=== PATIENT | female | born 1980 | race Caucasian/White ===

== ENCOUNTER 2018-07-03 08:49 | Emergency (ER) | payer OTHER ==
[2018-07-03 09:22] LABS: Absolute Lymphocytes (CBC) 1.7 K/uL (0.7-4.9); Absolute Monocytes 0.5 K/uL (0.1-1.3); Absolute Neutrophil 4.8 K/uL (1.8-8.0); Basophils % 0.6 % (0-1.3); Eosinophils % 2.5 % (0-4.4); Hematocrit 42.6 % (36.0-45.0); Lymphocytes % 23.7 % (15.3-44.8); MCH 31.3 pg (27.0-35.0); MCV 91.8 fL (80-100); MPV 8.1 fL (7.6-11.3); Monocytes % 7.1 % (3.3-12.3); RBC Red Blood Cell Count 4.64 M/uL (3.86-4.86)
[2018-07-03] MEDS ORDERED: NA CHLORIDE 0.9% 1,000 ML ONE (09:33)
[2018-07-03 10:09] LABS: ALT/SGPT 40 U/L (12-78); AST/SGOT 24 U/L (15-37); Albumin 3.8 g/dL (3.4-5.0); Alkaline Phosphatase 85 U/L (45-117); BUN Blood Urea Nitrogen 9 mg/dL (7-18); Bicarbonate 26 mmol/L (21-32); Bilirubin Direct 0.1 mg/dL (0-0.2); Bilirubin Total 0.5 mg/dL (0.2-1.0); Glucose Level 110 mg/dL (74-106); Potassium 3.9 mmol/L (3.5-5.1); Protein, Total 6.8 g/dL (6.4-8.2); Sodium Level 138 mmol/L (136-145); Troponin (Emerg Dept Use Only) < 0.02 ng/mL (0.0-0.045)
--- NOTE | 2018-07-03 11:00 | RAD REPORT ---
EXAM DESCRIPTION: RAD - Chest Single View - 07/03/2018 10:53 am CLINICAL HISTORY: CHEST PAIN Chest pain. COMPARISON: No comparisons FINDINGS: Portable technique limits examination quality. The lungs are grossly clear. The heart is normal in size. No displaced fractures. IMPRESSION: No acute intrathoracic process suspected.
--- NOTE | 2018-07-03 11:35 | EKG ---
Test Date: 2018-07-03 Test Time: 09:03:14 Publisher Assistant: SYLVAIN MEASUREMENT RESULTS: Intervals: Rate: 84 MD: 168 QRSD: 78 QT: 354 QTc: 418 [place]: P: 35 MD: 168 QRS: 58 T: 44 INTERPRETIVE STATEMENTS: Normal sinus rhythm Normal ECG No previous ECG available for comparison Electronically Signed On 07-03-18 11:34:16 FLORAL DESIGNER SALESPERSON by Ed Nelson
--- NOTE | 2018-07-03 12:26 | ER ---
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 Transition of care: patient was not received from another setting of care. Onset of symptoms was July 03, 2018. Risk Assessment: Do you want to hurt yourself or someone else? Patient reports no desire to harm self or others. Initial Sepsis Screen: Does the patient meet any 2 criteria? No. Patient's initial sepsis screen is negative. Does the patient have a suspected source of infection? No. Patient's initial sepsis screen is negative. Care prior to arrival: None. 09:06 Method Of Arrival: Wheelchair iw 09:06 Acuity: AMRIT 3 iw INSPECTOR OF DREDGING: 09:12 LMP N/A - control method iw Historical: - Allergies: 09:12 NKA; iw - Home Meds: 09:12 None [Active]; iw - PMHx: 09:12 None; iw - PSHx: 09:12 Cholecystectomy; Tonsillectomy; Tubal ligation; iw - Immunization history:: Adult Immunizations not up to date. - Social history:: Smoking status: Patient uses tobacco products, smokes one pack cigarettes per day. - Ebola Screening: : Patient negative for fever greater than or equal to 101.5 degrees Fahrenheit, and additional compatible Ebola Virus Disease symptoms Patient denies exposure to infectious person Patient denies travel to an Ebola-affected area in the 21 days before illness onset No symptoms or risks identified at this time. - Family history:: not pertinent. - Hospitalizations: : No recent hospitalization is reported. Screenin:05 Abuse screen: Denies threats or abuse. Denies injuries from another. Nutritional sv screening: No deficits noted. Tuberculosis screening: No symptoms or risk factors identified. Fall Risk None identified. Assessment: 09:05 Also complains of shortness of breath. General: Appears in no apparent distress. sv uncomfortable, well developed, Behavior is calm, cooperative, appropriate for age. Pain: Complains of pain in chest Pain radiates to left jaw Pain currently is 5 out of 10 on a pain scale. Pain began this morning. Neuro: Level of Consciousness is awake, alert, obeys commands, Oriented to person, place, time, situation, Moves all extremities. Full function Gait is steady, Speech is normal. Cardiovascular: Patient's skin is warm and dry. Rhythm is sinus rhythm. Respiratory: Airway is patent Respiratory effort is even, unlabored, Respiratory pattern is regular, symmetrical. Derm: Skin is pink, warm \\T\\ dry. 10:15 Reassessment: Xray at bedside. sv 11:45 Reassessment: Patient appears in no apparent distress at this time. No changes from sv previously documented assessment. Patient and/or family updated on plan of care and expected duration. Pain level reassessed. Patient is alert, oriented x 3, equal unlabored respirations, skin warm/dry/pink. Repeat troponin sent to outside lab. Vital Signs: 09:12 BP 90 / 57; Pulse 88; Resp 16 S; Temp 98.2; Pulse Ox 97% on R/A; Weight 86.18 kg; iw Height 5 ft. 4 in. (162.56 cm); Pain 5/10; 09:35 BP 111 / 50; Pulse 82; Resp 16; Pulse Ox 97% on R/A; sv 10:20 BP 116 / 47; Pulse 79 MON; Resp 16; Pulse Ox 100% on R/A; sv 11:06 BP 103 / 63; Pulse 82; Resp 16; Pulse Ox 100% on R/A; sv 11:46 BP 119 / 62; Pulse 68; Resp 20; Pulse Ox 99% ; sv 12:22 BP 112 / 64; Pulse 72; Resp 19; Pulse Ox 99% ; sv 09:12 Body Mass Index 32.61 (86.18 kg, 162.56 cm) iw 10:20 Sinus Rhythm sv ED Course: 08:50 Patient arrived in ED. as 08:50 Jonah Betancourt DO is Private Physician. as 08:55 Angel Luna MD is Attending Physician. rn 08:59 Cierra Castillo RN is Primary Nurse. sv 09:05 Initial lab(s) drawn, by me, sent to lab. Inserted saline lock: 20 gauge in right sv antecubital area, using aseptic technique. Blood collected. Flushed right antecubital with 5 ml normal saline. 09:05 Patient maintains SpO2 saturation greater than 95% on room air. sv 09:05 Patient has correct armband on for positive identification. Placed in gown. Bed in low sv position. Call light in reach. Adult w/ patient. monitoring manager on. Pulse ox on. NIBP on. Door closed. Head of bed elevated. Pt declined a blanket at this time.. 09:10 EKG done, by nanoscience technician. reviewed by Angel Luna MD. at1 09:11 Triage completed. iw 09:12 Arm band placed on. iw 09:15 Awaiting lab results, Awaiting for x-ray. sv 10:20 Awaiting radiology results. sv 10:28 XRAY Chest (1 view) Sent. sv 10:52 X-ray completed. Portable x-ray completed in exam room. Patient tolerated procedure ls3 well. 10:54 XRAY Chest (1 view) In Process Unspecified. EDMS 12:58 No provider procedures requiring assistance completed. IV discontinued, intact, sv bleeding controlled, No redness/swelling at site. Pressure dressing applied. Administered Medications: 09:30 Drug: NS 0.9% 1000 ml Route: IV; Rate: 1000 ml; Site: right antecubital; sg 12:58 Follow up: Response: No adverse reaction; IV Status: Completed infusion; IV Intake: sv 500ml Intake: 12:58 IV: 500ml; Total: 500ml. sv Outcome: 12:26 Discharge ordered by MD. rn 12:58 Discharged to home ambulatory, with family. sv 12:58 Condition: stable 12:58 Discharge instructions given to patient, Instructed on discharge instructions, follow up and referral plans. Demonstrated understanding of instructions, follow-up care. 12:58 Patient left the ED. sv Signatures: Dispatcher [employer] EDMS Cierra Castillo RN RN sv Gay, Steven, RN RN sg Martinez, Amelia as Williams, Irene, RN RN iw Angel Luna MD MD rn Gonzales, Amanda, chief mechanical engineer EKG Tat1 Shari Perez ls3 Corrections: (The following items were deleted from the chart) 13:03 13:01 Patient left the ED. sv sv
--- NOTE | 2018-07-03 12:26 | EDPHYS ---
Physician Documentation [facility] Name: Teresa Freire Age: 38 yrs Sex: Female : 1980 Arrival Date: 07/03/2018 Time: 08:50 Bed 8 Private MD: Marilin Betancourth ED Physician Angel Luna HPI: 07/03 09:16 This 38 yrs old Female presents to ER via Wheelchair with complaints of Chest rn Pain, Jaw Pain, Nausea. 09:16 The patient or guardian reports chest pain that is located primarily in the substernal rn area. The pain does not radiate. Associated signs and symptoms: Pertinent positives: nausea, Pertinent negatives: abdominal pain, cough, diaphoresis, near syncope, palpitations, shortness of breath, syncope, vomiting. The chest pain is described as a heaviness. Duration: The patient or guardian reports a single episode, that is now resolved. Modifying factors: The symptoms are alleviated by nothing. the symptoms are aggravated by nothing. Severity of pain: At its worst the pain was moderate in the emergency department the pain has improved. The patient has not experienced similar symptoms in the past. The patient has not recently seen a physician. 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 . INGOT SUPERVISOR: 09:12 LMP N/A - control method iw Historical: - Allergies: 09:12 NKA; iw - Home Meds: 09:12 None [Active]; iw - PMHx: 09:12 None; iw - PSHx: 09:12 Cholecystectomy; Tonsillectomy; Tubal ligation; iw - Immunization history:: Adult Immunizations not up to date. - Social history:: Smoking status: Patient uses tobacco products, smokes one pack cigarettes per day. - Ebola Screening: : Patient negative for fever greater than or equal to 101.5 degrees Fahrenheit, and additional compatible Ebola Virus Disease symptoms Patient denies exposure to infectious person Patient denies travel to an Ebola-affected area in the 21 days before illness onset No symptoms or risks identified at this time. - Family history:: not pertinent. - Hospitalizations: : No recent hospitalization is reported. ROS: 09:17 Constitutional: Negative for fever, chills, and weight loss, Eyes: Negative for injury, rn pain, redness, and discharge, Neck: Negative for injury, pain, and swelling, Cardiovascular: Negative for palpitations, and edema, Respiratory: Negative for shortness of breath, cough, wheezing, and pleuritic chest pain, Abdomen/GI: Negative for abdominal pain, vomiting, diarrhea, and constipation, MS/Extremity: Negative for injury and deformity, Skin: Negative for injury, rash, and discoloration, Neuro: Negative for headache, weakness, numbness, tingling, and seizure. Exam: 09:17 Constitutional: This is a well developed, well nourished patient who is awake, alert, rn and in no acute distress. Head/Face: Normocephalic, atraumatic. ENT: MMM, no stridor Chest/axilla: Normal chest wall appearance and motion. Nontender with no deformity. Cardiovascular: Regular rate and rhythm with a normal S1 and S2. No gallops, murmurs, or rubs. No JVD. No pulse deficits. Respiratory: Lungs have equal breath sounds bilaterally, clear to auscultation. No increased work of breathing, no retractions or nasal flaring. Abdomen/GI: soft, non-tender MS/ Extremity: Pulses equal, no cyanosis. Neurovascular intact. Full, normal range of motion. Equal circumference. Neuro: Awake and alert, GCS 15, oriented to person, place, time, and situation. Cranial nerves II-XII grossly intact. Motor strength 5/5 in all extremities. Sensory grossly intact. Cerebellar exam normal. Vital Signs: 09:12 BP 90 / 57; Pulse 88; Resp 16 S; Temp 98.2; Pulse Ox 97% on R/A; Weight 86.18 kg; iw Height 5 ft. 4 in. (162.56 cm); Pain 5/10; 09:35 BP 111 / 50; Pulse 82; Resp 16; Pulse Ox 97% on R/A; sv 10:20 BP 116 / 47; Pulse 79 MON; Resp 16; Pulse Ox 100% on R/A; sv 11:06 BP 103 / 63; Pulse 82; Resp 16; Pulse Ox 100% on R/A; sv 11:46 BP 119 / 62; Pulse 68; Resp 20; Pulse Ox 99% ; sv 12:22 BP 112 / 64; Pulse 72; Resp 19; Pulse Ox 99% ; sv 09:12 Body Mass Index 32.61 (86.18 kg, 162.56 cm) iw 10:20 Sinus Rhythm sv MDM: 08:55 Patient medically screened. rn 12:23 Data reviewed: vital signs, nurses notes. rn 12:24 Differential diagnosis: acute myocardial infarction, acute pericarditis, anxiety, rn coronary artery disease chest wall pain, costochondritis, esophagitis, gastritis, gastroesophageal reflux disease (GERD), pericarditis, pleurisy, pneumothorax, pulmonary embolus. Counseling: I had a detailed discussion with the patient and/or guardian regarding: the historical points, exam findings, and any diagnostic results supporting the discharge/admit diagnosis, lab results, radiology results, the need for outpatient follow up, to return to the emergency department if symptoms worsen or persist or if there are any questions or concerns that arise at home. Special discussion: Based on the patient's history, exam, and Dx evaluation, there is no indication for emergent intervention or inpatient Tx. It is understood by the patient/guardian that if the Sx's persist or worsen they need to return immediately for re-evaluation. I discussed with the patient/guardian in detail that at this point there is no indication for admission to the hospital. It is understood, however, that if the symptoms persist or worsen the patient needs to return immediately for re-evaluation. 12:24 ED course: Repeat troponin negative, will dc home with reocmmendation for pcp and handle turner f/u for ECHO/holter and further w/u, possible stress test. . 07/03 09: Order name: Basic Metabolic Panel; Complete Time: 10: rn 07/03 09: Order name: CBC with Diff; Complete Time: : rn 07/03 09: Order name: LFT's; Complete Time: : rn 07/03 09:01 Order name: Troponin (emerg Dept Use Only); Complete Time: : rn 07/03 09: Order name: D-Dimer; Complete Time: : rn 07/03 11:34 Order name: Troponin (emerg Dept Use Only); Complete Time: 12:23 rn 07/03 09:01 Order name: XRAY Chest (1 view); Complete Time: 11: rn 07/03 09: Order name: EKG; Complete Time: 09: rn 07/03 09:01 Order name: Cardiac monitoring; Complete Time: : rn 07/03 09:01 Order name: EKG - Nurse/Tech; Complete Time: : rn 07/03 09:01 Order name: IV Saline Lock; Complete Time: : rn 07/03 09:01 Order name: Labs collected and sent; Complete Time: : rn 07/03 11:34 Order name: EKG; Complete Time: 11:35 rn 07/03 09:01 Order name: O2 Per Protocol; Complete Time: : rn 07/03 09:01 Order name: O2 Sat Monitoring; Complete Time: : rn 07/03 11:34 Order name: EKG - Nurse/Tech; Complete Time: 11:46 rn Administered Medications: 09:30 Drug: NS 0.9% 1000 ml Route: IV; Rate: 1000 ml; Site: right antecubital; 12:58 Follow up: Response: No adverse reaction; IV Status: Completed infusion; IV Intake: sv 500ml Disposition: 07/03/18 12:26 Discharged to Home. Impression: Chest pain, unspecified. - Condition is Stable. - Discharge Instructions: Nonspecific Chest Pain. - Work release form, Medication Reconciliation Form, Thank You Letter, Antibiotic Education, Prescription Opioid Use form. - Follow up: Private Physician; When: As needed; Reason: Recheck today's complaints, Re-evaluation by your physician. - Problem is new. - Symptoms have improved. Signatures: Dispatcher [employer] EDOR Cierra Castillo RN RN sv Gay, Steven, RN RN Padmaja Rushing RN RN Angel Luna MD MD rn burn: (The following items were deleted from the chart) 12:25 12:23 Differential diagnosis: anxiety, dehydration, hypoglycemia, Vasovagal reaction, rn reaction to phlebotomoy rn 13:01 12:26 07/03/2018 12:26 Discharged to Home. Impression: Chest pain, unspecified. sv Condition is Stable. Forms are Medication Reconciliation Form, Thank You Letter, Antibiotic Education, Prescription Opioid Use. Follow up: Private Physician; When: As needed; Reason: Recheck today's complaints, Re-evaluation by your physician. Problem is new. Symptoms have improved. rn
--- NOTE | 2018-07-03 15:25 | EKG ---
Test Date: 2018-07-03 Test Time: 11:44:58 Derrick Boat Captain: SYLVAIN MEASUREMENT RESULTS: Intervals: Rate: 66 WA: 178 QRSD: 76 QT: 394 QTc: 413 Albert Lea: P: 41 WA: 178 QRS: 67 T: 59 INTERPRETIVE STATEMENTS: Normal sinus rhythm Normal ECG Compared to ECG 07/03/2018 09:03:14 No significant changes Electronically Signed On 07-03-18 15:24:34 PATIENT ADMITTING CLERK by Ed Nelson
== END 2018-07-03 13:01 | disposition home or self-care (01) ==
LOC: ER 08:49
DX: R07.9 Chest pain, unspecified (principal); F17.210 Nicotine dependence, cigarettes, uncomplicated
CPT/HCPCS: 36415; 71045; 80048; 80076; 84484; 85025; 85379; 93005; 96360; 96361; 99285; J7030

== ENCOUNTER 2020-08-17 21:37 | Emergency (ER) | payer BC, OTHER ==
--- OUTSIDE RECORDS SUMMARY | 2020-08-17 21:39 | XMS REPORT | Continuity of Care Document ---
:1980 Author Organization [facility] t Address [address] [place] [address] Care Team Providers Name Role Phone Emmie RASCON Attending Clinician Problems This patient has no known problems. Allergies, Adverse Reactions, Alerts This patient has no known allergies or adverse reactions. Medications Ordered Filled Start Stop Current Ordering Indication Dosage Frequency Signature Comments Components Source Medication Medication Date Date Medication? Clinician (SIG) Name Name Amoxicillin Amoxicillin 2019-0 2020- No Jonah [address] [facility]10 [facility]ancourt [facility] Xanax Xanax 2020-0 Yes Jon[facility] 1 tablet [facility] Zoloft Zoloft Yes Jonah Take 1/2 [facility] tab once a [facility] day x 1 [facility] week then l 1 tab once Outpati daily ent Clinics Mirena (52 Mirena (52 Yes Jonah as C [facility] MG) MG) Betancourt directed [facility] Procedures This patient has no known procedures. Encounters Start End Encounter Admission Attending Care Care Encounter Source Date/Time Date/Time Type Type Clinicians Facility Department ID 2020-08-14 2020-08-14 Outpatient [facility] [id number] [facility] 2020-08-12 2020-08-12 Out[facility] [id number] [facility] 2020-08-12 2020-08-12 [facility] [id number] [facility] 2020-08-12 2020-08-12 [facility] [id number] [facility] 2020-05-26 2020-05-26 Out[facility] [id number] [facility] 2020-04-28 2020-04-28 Out[facility] [id number] [facility] 2020-04-10 2020-04-10 [facility] [id number] [facility] 15:50:00 15:50:00 [facility] [place] [facility] 2020-04-10 2020-04-10 [facility] [id number] [facility] 08:25:00 08:25:00 [facility] 2019-10-10 2019-10-10 Office [facility] [id number] 09:49:48 10:25:53 Visit Shanel Solares [id number] Lidia [id number] Charmaine [id number] [address] 2019-09-25 2019-09-25 [facility] [id number] [facility] 16:00:00 16:00:00 [place] [facility] 2019-08-27 2019-08-27 [facility] [id number] [facility] [address] 16:00:00 16:00:00 [place] [employer] [facility] 2019-07-16 2019-07-16 [facility] [id number] 15:00:00 15:00:00 [place] [employer] [facility] 2019-04-04 2019-04-04 [facility] [id number] [facility] 15:46[facility]00 15:46:00 [facility] 2019-03-23 2019-03-23 [facility] [id number] 09:01:00 09:01:00 [facility] 2018-11-27 2018-11-27 [facility] [id number] 16:30:00 16:30:00 [place] [employer] [facility] 2018-11-15 2018-11-15 [facility] [id number] [facility] 14:30:00 14:30:00 [facility] 2018-10-30 2018-10-30 [facility] [id number] 10:58:00 10:58:00 [facility] 2018-10-26 2018-10-26 [facility] [id number] 13:30:00 13:30:00 [facility] 2018-10-24 2018-10-24 [facility] [id number] 10:55:00 10:55:00 [facility] 2018-10-10 2018-10-10 [facility] [id number] [facility] 09:24:00 09:24:00 [facility] 2018-10-02 2018-10-02 Outpatient Bruno Gaspar [id number] 15:45:00 15:45:00 [facility] 2018-08-10 2018-08-10 Outpatient Burno Gaspar [id number] [facility] 15:02:00 15:02:00 t [place] [facility] ent Clinics Results This patient has no known results.
--- OUTSIDE RECORDS SUMMARY | 2020-08-17 21:39 | XMS REPORT ---
:[address] [facility] Address [address], [address] [place] [address] Care Team Providers Name Role Phone Betancourt Unavailable [phone] PROBLEMS Type Condition ICD9-CM [id number] Onset Condition SNOMED Code Notes Code Code Dates Status Problem BMI Z68.33 Active 893369435626793 33.0-33.9,adult Problem Depression with F41.8 Active 344375274 anxiety Problem Tobacco F17.200 Active 72986651 dependence Problem Acute F43.11 Active 847284663 posttraumatic stress disorder Problem Encounter for Z01.419 Active 169584228 gynecological examination without abnormal finding Problem IUD (intrauterine Z97.5 Active 346420555 device) in place Problem Panic disorder F41.0 Active 821373402 [episodic paroxysmal anxiety] Problem Adjustment F43.20 Active 16322843 disorder, unspecified Problem Generalized F41.1 Active 51863439 anxiety disorder Problem Hyperlipemia, E78.2 Active 829181440 mixed Problem Surveillance for Z30.431 Active 194034815 control, intrauterine device Problem Remove/insert IUD Z30.433 Active 718481412 Problem Herpes simplex A60.04 Active 72612393 vulvovaginitis Problem Herpes simplex B00.9 Active 48704907 ALLERGIES No Known Allergies ENCOUNTERS from 1980 to 2020-08-12 Encounter Location Date Provider Diagnosis [facility] [address], [place] [address] IMMUNIZATIONS Vaccine Route Administration Date Status Kenalog (Triamcinolone) IM Intramuscular Jul 16, 2019 Adminis tered Kenalog (Triamcinolone) IM Intramuscular November 27, 2018 Adminis tered SOCIAL HISTORY Tobacco Use: Social History Observation Description Date Details (start date - stop date) Current Smoker Sex Assigned At : Social History Observation Description Sex Assigned At Unknown Alcohol Screen Question Answer Notes Did you have a drink containing alcohol in the past year? No Points 0 Interpretation Negative Tobacco Use/Smoking Question Answer Notes Are you a current smoker How many cigarettes a day do you smoke? 6-10 How soon after you wake up do you smoke your first cigarette ? 6-30 minutes How often do you smoke cigarettes? every day REASON FOR REFERRAL No Information VITAL SIGNS No information MEDICATIONS Medication SIG (Take, Route, Notes Start Date End Date Status Frequency, Duration) Zoloft 50 MG Take 1/2 tab once a Not -Taking day x 1 week then 1 tab once daily Orally Once a day for 30 day(s) Medrol 4 MG as directed Orally Jul, Jul, A ctive use as directed for 6 days Mirena (52 MG) 20 as directed Active MCG/24HR Intrauterine Azithromycin 250 MG 2 tablets on the Jul, Jul, Active first day, then 1 tablet daily for 4 days Orally Once a day for 5 day(s) Xanax 0.25 MG 1 tablet Orally Twice Active a day PRN SEVERE ANXIETY PROCEDURES No Information RESULTS No Results REASON FOR VISIT LYNN, ear/jaw pressure MEDICAL (GENERAL) HISTORY Type Description Date Medical History Hyperlipemia, mixed Medical History BMI 33.0-33.9,adult Medical History Depression with anxiety Medical History Tobacco dependence Surgical History Gallbladder 2000 Surgical History Tonsillectomy 2011 Surgical History BTL 2000 Hospitalization History Childbirth Goals Section No Information Health Concerns No Information MEDICAL EQUIPMENT No Information MENTAL STATUS No Information FUNCTIONAL STATUS No Information ASSESSMENTS No Information PLAN OF TREATMENT Medication Medication Name Sig Start Date Stop Date Medrol 4 MG as directed Orally use as directed for Jul, 021 Jul, 6 days Azithromycin 250 MG 2 tablets on the first day, then 1 Jul, Jul, tablet daily for 4 days Orally Once a day for 5 day(s) Insurance Providers Payer Name Payer Payer Insured Name Patient Coverage Covera ge End Address Phone Relationship to Start Date Micheal e Insured [employer] [phone] Teresa Freire and Sheng [id number] [place] [phone]
--- OUTSIDE RECORDS SUMMARY | 2020-08-17 21:39 | XMS REPORT ---
:1980 Author Organization [facility] Address [address] Aguilar, [address]run[address]. [address] [place] [address] Care Team Providers Name Role Phone Betancourt Unavailable [phone] PROBLEMS Type Condition ICD9-CM [id number] Onset Condition SNOMED Code Notes Code Code Dates Status Problem BMI Z68.33 Active 516286611425378 33.0-33.9,adult Problem Depression with F41.8 Active 488584836 anxiety Problem Tobacco F17.200 Active 35288252 dependence Problem Acute F43.11 Active 735919300 posttraumatic stress disorder Problem Encounter for Z01.419 Active 204545778 gynecological examination without abnormal finding Problem IUD (intrauterine Z97.5 Active 736107794 device) in place Problem Panic disorder F41.0 Active 745134328 [episodic paroxysmal anxiety] Problem Adjustment F43.20 Active 91602499 disorder, unspecified Problem Generalized F41.1 Active 52617388 anxiety disorder Problem Hyperlipemia, E78.2 Active 876360488 mixed Problem Surveillance for Z30.431 Active 116734479 control, intrauterine device Problem Remove/insert IUD Z30.433 Active 189663902 Problem Herpes simplex A60.04 Active 79710061 vulvovaginitis Problem Herpes simplex B00.9 Active 37997899 ALLERGIES No Known Allergies ENCOUNTERS from 1980 to 2020-05-27 Encounter Location Date Provider Diagnosis [facility] [address] Jacques K[address], [place] [address] IMMUNIZATIONS Vaccine Route Administration Date Status Kenalog [...] No information MEDICATIONS Medication SIG (Take, Route, Start Date End Date Status Frequency, Duration) Xanax 0.25 MG 1 tablet Orally Twice a Act leonie day PRN SEVERE ANXIETY Valtrex 1 GM 2 tablets Orally twice a May, May, Act leonie day for 1 day Mirena (52 MG) 20 as directed Intrauterine Active MCG/24HR Zoloft 50 MG Take 1/2 tab once a day x No t-Taking 1 week then 1 tab once daily Orally Once a day for 30 day(s) PROCEDURES No Information RESULTS No Results REASON FOR VISIT fever blister tx MEDICAL (GENERAL) HISTORY Type Description Date Medical [...] Medication Name Sig Start Date Stop Date Valtrex 1 GM 2 tablets Orally twice a day for 1 day May, 2 020 May, Insurance Providers Payer Name Payer Payer Insured Name Patient Coverage Covera ge End Address Phone Relationship to Start Date Micheal e Insured [employer] [phone] Teresa Freire self and Blue [id number] [address] [place] [phone]
--- OUTSIDE RECORDS SUMMARY | 2020-08-17 21:40 | XMS REPORT ---
:1980 Author Organization [facility] Address [address] Aguilar, [address]. [address] [place] [address] Care Team Providers Name Role Phone Betancourt Unavailable [phone] PROBLEMS Type Condition ICD9-CM [id number] Onset Condition SNOMED Code Notes Code Code Dates Status Problem BMI Z68.33 Active 404590322394299 33.0-33.9,adult Problem Depression with F41.8 Active 066778773 anxiety Problem Tobacco F17.200 Active 90556260 dependence Problem Acute F43.11 Active 994925283 posttraumatic stress disorder Problem Encounter for Z01.419 Active 005908601 gynecological examination without abnormal finding Problem IUD (intrauterine Z97.5 Active 180257621 device) in place Problem Panic disorder F41.0 Active 573813010 [episodic paroxysmal anxiety] Problem Adjustment F43.20 Active 29216592 disorder, unspecified Problem Generalized F41.1 Active 56812712 anxiety disorder Problem Hyperlipemia, E78.2 Active 933774401 mixed Problem Surveillance for Z30.431 Active 450307346 control, intrauterine device Problem Remove/insert IUD Z30.433 Active 754379150 Problem Herpes simplex A60.04 Active 56439555 vulvovaginitis Problem Herpes simplex B00.9 Active 44074476 ALLERGIES No Known Allergies ENCOUNTERS from 1980 to 2020-08-12 Encounter Location Date Provider Diagnosis [facility] [address], [place] [address] IMMUNIZATIONS Vaccine Route Administration Date Status Kenalog [...] Information RESULTS No Results REASON FOR VISIT COVID Testing---> PENDING MEDICAL (GENERAL) HISTORY Type Description Date Medical History Hyperlipemia, mixed Medical History BMI 33.0-33.9,adult Medical History Depression with anxiety Medical History Tobacco dependence Surgical History Gallbladder 2000 Surgical History Tonsillectomy 2012 Surgical History BTL 2000 Hospitalization History Childbirth [...] ge End Address Phone Relationship to Start Micheal e Insured [employer] [phone] Teresa Freire and Blue [id number] [address] [facility] [address]
--- OUTSIDE RECORDS SUMMARY | 2020-08-17 21:40 | XMS REPORT ---
:1980 Author Organization [facility] Address [address] Aguilar, [address]. [address] [place] [address] Care Team Providers Name Role Phone Betancourt Unavailable [phone] PROBLEMS Type Condition ICD9-CM SLQ48-[id number] Onset Condition SNOMED Code Notes Code Code Dates Status Problem BMI Z68.33 Active 921066466725615 33.0-33.9,adult Problem Depression with F41.8 Active 624567027 anxiety Problem Tobacco F17.200 Active 06289837 dependence Problem Acute F43.11 Active 475945107 posttraumatic stress disorder Problem Encounter for Z01.419 Active 637253904 gynecological examination without abnormal finding Problem IUD (intrauterine Z97.5 Active 583684128 device) in place Problem Panic disorder F41.0 Active 633470402 [episodic paroxysmal anxiety] Problem Adjustment F43.20 Active 54478730 disorder, unspecified Problem Generalized F41.1 Active 40334886 anxiety disorder Problem Hyperlipemia, E78.2 Active 237112740 mixed Problem Surveillance for Z30.431 Active 798507375 control, intrauterine device Problem Remove/insert IUD Z30.433 Active 579511539 Problem Herpes simplex A60.04 Active 87700468 vulvovaginitis Problem Herpes simplex B00.9 Active 14209566 ALLERGIES No Known Allergies ENCOUNTERS from 1980 to 2020-08-14 Encounter Location Date Provider Diagnosis [facility] [address] Jacques [address], [place] [address] IMMUNIZATIONS Vaccine Route Administration Date Status Kenalog [...] Information RESULTS No Results REASON FOR VISIT RTW note MEDICAL (GENERAL) HISTORY Type Description Date Medical [...] Micheal e Insured [employer] [phone] Teresa Freire and Sheng [id number] [address] [place] [address]
--- OUTSIDE RECORDS SUMMARY | 2020-08-17 21:40 | XMS REPORT ---
:1980 Author Organization [facility] Address [address] Aguilar, [place] [place] [address] Care Team Providers Name Role Phone Betancourt Unavailable [phone] PROBLEMS Type Condition ICD9-CM CET26-[id number] Onset Condition SNOMED Code Notes Code Code Dates Status Problem BMI Z68.33 Active 112283474281628 33.0-33.9,adult Problem Depression with F41.8 Active 702504527 anxiety Problem Tobacco F17.200 Active 11365031 dependence Problem Acute F43.11 Active 186829721 posttraumatic stress disorder Problem Encounter for Z01.419 Active 759387923 gynecological examination without abnormal finding Problem IUD (intrauterine Z97.5 Active 685764224 device) in place Problem Panic disorder F41.0 Active 181767337 [episodic paroxysmal anxiety] Problem Adjustment F43.20 Active 66434453 disorder, unspecified Problem Generalized F41.1 Active 29242108 anxiety disorder Problem Hyperlipemia, E78.2 Active 922969249 mixed Problem Surveillance for Z30.431 Active 126622586 control, intrauterine device Problem Remove/insert IUD Z30.433 Active 083983493 Problem Herpes simplex A60.04 Active 72935161 vulvovaginitis Problem Herpes simplex B00.9 Active 29546580 ALLERGIES No Known Allergies ENCOUNTERS from 1980 to 2020-08-12 Encounter Location Date Provider Diagnosis [facility] [place] [address], [place]ah Betancourt Suspected COVID-[address] [place], virus infe [place]tion Z20.8[address] [place] [address] ; Nonintractab le headache, unspe cified chronicity ruchi brielle, unspecified hea dache type R51.9 ; Le ft ear pain H92.02 ; S ore throat J02.9 an d Acute non-recurrent m axillary sinusitis J01.0 0 IMMUNIZATIONS Vaccine Route Administration Date Status Kenalog [...] REASON FOR REFERRAL No Information VITAL SIGNS Height 64 in Jul, Weight 187 lbs Jul, Temperature 98.5 degrees Fahrenheit Jul, BMI 32.09 kg/m2 Jul, Blood pressure systolic 130 mm Hg Jul, Blood pressure diastolic 70 mm Hg Jul, MEDICATIONS Medication SIG (Take, Route, Notes Start [...] PRN SEVERE ANXIETY PROCEDURES No Information RESULTS Component Value Reference Range STREP A RAPID Reviewed date:08/12/2020 18:07:52 Interpretation:Positive Performing Lab: Result POSITIVE SARS-COV 2 Antigen Reviewed date:08/12/2020 18:07:52 Interpretation:Negative Performing Lab: REASON FOR VISIT COVID-HEADACHE, SORE THROAT MEDICAL (GENERAL) HISTORY Type Description Date Medical History Hyperlipemia, mixed Medical History BMI 33.0-33.9,adult Medical History Depression with anxiety Medical History Tobacco dependence Surgical History Gallbladder 2000 Surgical History Tonsillectomy 2012 Surgical History BTL 2000 Hospitalization History Childbirth Goals Section No Information Health Concerns No Information MEDICAL EQUIPMENT No Information MENTAL STATUS No Information FUNCTIONAL STATUS No Information ASSESSMENTS Encounter Date Diagnosis Assessment Notes Treatment Notes Treatm ent Clinical Notes Jul, Suspected COVID-19 Questionable/possib virus infection le exposure to (ICD-10 - Z20.822) COVID. With patient's history and duration/severity of symptoms, it was determined to proceed with testing of this patient for suspected case of COVID-19. CDC/IDER protocols were followed. While maintaining minimal exposure specimen was collected while patient remained in their car. Clinical staff went to the car dressed in appropriate PPE to collect the specimen while maintaining protocol. ==== During testing/collection of nasopharyngeal/nasa l cavity specimen, staff/provider wore proper PPE, bagged specimen and properly disposed of PPE accordingly. - Specimen was verified with patient name/, properly handed to appropriate lab personnel. Patient was counseled based on clinical assessment, disease severity, and input from infectious disease and local health department. if local health department deemed that patient can be sent home, patient was provided with a surgical mask and advised to wear while commuting home. Patient was advised to self-quarantine for 14 days, or until negative results are received. Patient was instructed to refer to CDC guidelines and provided additional information on self-quarantine. Local health department contact information was given to patient: ==[facility], [address] [place] [address]. [phone] or [phone] Jul, Nonintractable headache, unspecified chronicity pattern, unspecified headache type (ICD-10 - R51.9) Jul, Left ear pain (ICD-10 - H92.02) Jul, Sore throat (ICD-10 - J02.9) Jul, Acute non-recurrent With the duration maxillary sinusitis and severity of (ICD-10 - J01.00) symptoms/PE, will treat with Zpak + medrol Dosepak. Side effect discussed with patient. In addition, discussed supportive measures and home remedies for symptomatic relief. Increase hydration. Advised on signs/symptoms to monitor. If able to take, OK to use OTC Tylenol and/or NSAIDs for pain and fever, temporarily. It is important to rest and take your medication as recommended by the doctor. You should clean your hands frequently. You should remain indoors and cover your mouth when coughing. If necessary you may have to wear a mask to keep from infecting others. You should also change your toothbrush within 24-48 hours of starting any antibiotics. Salt water gargles three times a day is recommended for pharyngeal irritation and congestion. Nasal saline sprays three times a day to the nostrils may help with the nasal congestion. You may also take Mucinex OTC for chest congestion. If the symptoms persists or worsen after 24-48 hours especially if taking medication, then you are to call back for reevaluation or go to the ER. Jul, Other -- Medication reviewed and updated. -- Dietary and Lifestyle modifications addressed regarding diet, exercise and weight management. -- Treatment options, risks and benefits, alternate treatment options, side effects reviewed in detail with patient. -- Shared decision making was utilized with patient and verbal informed consent was obtained in the end. -- Advised on signs/symptoms to monitor and when to call clinic and/or visit the nearest ER. Patient verbalized understanding and agreeable with plan. PLAN OF TREATMENT Medication Medication Name Sig Start Date Stop Date Medrol 4 MG as directed Orally use as directed for Jul, 021 Jul, 6 days Azithromycin 250 MG 2 tablets on the first day, then 1 Jul, Jul, tablet daily for 4 days Orally Once a day for 5 day(s) Treatment Notes Assessment Notes Clinical Notes Suspected COVID-19 virus infection Questionable/possible exp osure to COVID. With patient's history and duration/severity of symptoms, it was determined to proceed with testing of this patient for suspected case of COVID-19. CDC/IDER protocols were followed. While maintaining minimal exposure specimen was collected while patient remained in their car. Clinical staff went to the car dressed in appropriate PPE to collect the specimen while maintaining protocol. During testing/collection of nasopharyngeal/nasal cavity specimen, staff/provider wore proper PPE, bagged specimen and properly disposed of PPE accordingly. - Specimen was verified with patient name/, properly handed to appropriate lab personnel. Patient was counseled based on clinical assessment, disease severity, and input from infectious disease and [facility] health department. if local health department deemed that patient can be sent home, patient was provided with a surgical mask and advised to wear while commuting home. Patient was advised to self-quarantine for 14 days, or until negative results are received. Patient was instructed to refer to CDC guidelines and provided additional information on self-quarantine. Local [facility] department contact information was given to patient: ==[facility], [address] [place] [address]. [phone] or [phone] Acute non-recurrent maxillary With the duration and severity of sinusitis symptoms/PE, will treat with Zpak + medrol Dosepak. Side effect discussed with patient. In addition, discussed supportive measures and home remedies for symptomatic relief. Increase hydration. Advised on signs/symptoms to monitor. If able to take, OK to use OTC Tylenol and/or NSAIDs for pain and fever, temporarily. It is important to rest and take your medication as recommended by the doctor. You should clean your hands frequently. You should remain indoors and cover your mouth when coughing. If necessary you may have to wear a mask to keep from infecting others. You should also change your toothbrush within 24-48 hours of starting any antibiotics. Salt water gargles three times a day is recommended for pharyngeal irritation and congestion. Nasal saline sprays three times a day to the nostrils may help with the nasal congestion. You may also take Mucinex OTC for chest congestion. If the symptoms persists or worsen after 24-48 hours especially if taking medication, then you are to call back for reevaluation or go to the ER. Next Appt Details prn Reason: Insurance Providers Payer Name Payer Payer Insured Name Patient Coverage Covera End Address Phone Relationship to Start Date Micheal e Insured [employer] [phone] Teresa Freire chen and Blue [id number] [address] [place] [phone]
--- NOTE | 2020-08-18 01:07 | EDPHYS ---
Physician Documentation [facility] Name: Teresa Freire Age: 40 yrs Sex: Female : 1980 Arrival Date: 08/17/2020 Time: 21:40 Bed 4 Private MD: ED Physician Hever Levy HPI: 08/18 00:58 This 40 yrs old Female presents to ER via Ambulatory with complaints of Neck mh7 Problem, + Jaw. 00:59 The patient or guardian complains of pressure sensation. The symptoms are located left mh7 anterior lateral side of neck. Onset: The symptoms/episode began/occurred 1 week(s) ago. Context: The problem was sustained at home, The neck injury/problem resulted from from unknown cause. Associated signs and symptoms: Pertinent negatives: chills, constipation, fever, headache, bladder incontinence, bowel incontinence, nausea, numbness, tingling, vomiting, weakness. The pain does not radiate. Modifying factors: The symptoms are alleviated by nothing. the symptoms are aggravated by nothing. Severity of symptoms: At their worst the symptoms were mild, 7 day(s) ago, in the emergency department the symptoms have improved, moderately. States that she tested positive for strep 5 days ago and just finished antibiotics. 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 - Social history:: Smoking status: Patient reports the use of cigarette tobacco products, smokes one pack cigarettes per day. ROS: 08/18 00:59 Constitutional: Negative for fever, chills, and weight loss, Eyes: Negative for injury, mh7 pain, redness, and discharge, ENT: Negative for injury, pain, and discharge, Cardiovascular: Negative for chest pain, palpitations, and edema, Respiratory: Negative for shortness of breath, cough, wheezing, and pleuritic chest pain, Abdomen/GI: Negative for abdominal pain, nausea, vomiting, diarrhea, and constipation, Back: Negative for injury and pain, : Negative for injury, bleeding, discharge, and swelling, MS/Extremity: Negative for injury and deformity, Skin: Negative for injury, rash, and discoloration, Neuro: Negative for headache, weakness, numbness, tingling, and seizure, Psych: Negative for depression, anxiety, suicide ideation, homicidal ideation, and hallucinations, Allergy/Immunology: Negative for hives, rash, and allergies, Endocrine: Negative for neck swelling, polydipsia, polyuria, polyphagia, and marked weight changes, Hematologic/Lymphatic: Negative for swollen nodes, abnormal bleeding, and unusual bruising. Exam: 00:59 Constitutional: This is a well developed, well nourished patient who is awake, alert, mh7 and in no acute distress. Head/Face: Normocephalic, atraumatic. Eyes: Pupils equal round and reactive to light, extra-ocular motions intact. Lids and lashes normal. Conjunctiva and sclera are non-icteric and not injected. Cornea within normal limits. Periorbital areas with no swelling, redness, or edema. ENT: Nares patent. No nasal discharge, no septal abnormalities noted. Tympanic membranes are normal and external auditory canals are clear. Oropharynx with no redness, swelling, or masses, exudates, or evidence of obstruction, uvula midline. Mucous membranes moist. Neck: Trachea midline, no thyromegaly or masses palpated, and no cervical lymphadenopathy. Supple, full range of motion without nuchal rigidity, or vertebral point tenderness. No Meningismus. Chest/axilla: Normal chest wall appearance and motion. Nontender with no deformity. No lesions are appreciated. Cardiovascular: Regular rate and rhythm with a normal S1 and S2. No gallops, murmurs, or rubs. Normal PMI, no JVD. No pulse deficits. Respiratory: Lungs have equal breath sounds bilaterally, clear to auscultation and percussion. No rales, rhonchi or wheezes noted. No increased work of breathing, no retractions or nasal flaring. Abdomen/GI: Soft, non-tender, with normal bowel sounds. No distension or tympany. No guarding or rebound. No evidence of tenderness throughout. Back: No spinal tenderness. No costovertebral tenderness. Full range of motion. Skin: Warm, dry with normal turgor. Normal color with no rashes, no lesions, and no evidence of cellulitis. MS/ Extremity: Pulses equal, no cyanosis. Neurovascular intact. Full, normal range of motion. Neuro: Awake and alert, GCS 15, oriented to person, place, time, and situation. Cranial nerves II-XII grossly intact. Motor strength 5/5 in all extremities. Sensory grossly intact. Cerebellar exam normal. Normal gait. Psych: Awake, alert, with orientation to person, place and time. Behavior, mood, and affect are within normal limits. Vital Signs: 08/17 22:12 BP 149 / 78; Pulse 92; Resp 16 S; Temp 97.7(TE); Pulse Ox 100% on R/A; Weight 83.91 kg ca1 (R); Height 5 ft. 4 in. (162.56 cm) (R); Pain 0/10; 08/18 00:42 BP 122 / 66; Pulse 85; Resp 17; Pulse Ox 98% ; rr5 01:10 BP 119 / 65; Pulse 80; Resp 17; Pulse Ox 98% ; rr5 08/17 22:12 Body Mass Index 31.75 (83.91 kg, 162.56 cm) ca1 MDM: 00:59 Differential diagnosis: cervical strain, torticollis, Musculoskeletal pain, infectious mh7 process. Data reviewed: vital signs, nurses notes, EKG. Data interpreted: Pulse oximetry: on room air is 98 %. Interpretation: normal. Counseling: I had a detailed discussion with the patient and/or guardian regarding: the historical points, exam findings, and any diagnostic results supporting the discharge/admit diagnosis, the need for outpatient follow up, to return to the emergency department if symptoms worsen or persist or if there are any questions or concerns that arise at home. Response to treatment: the patient's symptoms have markedly improved after treatment. Refusal of service: The patient/guardian displays adequate decision making capability and despite a detailed discussion of alternatives, benefits, risks, and consequences refuses: CT Scan, all lab tests. 01:06 Patient medically screened. 7 08/18 00:42 Order name: EKG - Nurse/Tech; Complete Time: 00:42 rr5 Administered Medications: No medications were administered Disposition: 08/18/20 01:06 Discharged to Home. Impression: Neck Pain. - Condition is Stable. - Discharge Instructions: Musculoskeletal Pain. - Medication Reconciliation Form, Thank You Letter, Antibiotic Education, Prescription Opioid Use form. - Follow up: Private Physician; When: 1 - 2 days; Reason: Worsening of condition, Recheck today's complaints, Continuance of care, Re-evaluation by your physician. - Problem is an ongoing problem. - Symptoms have improved. Signatures: Wilber Centeno RN RN rr5 Chayo, PERNELL Lovell RN ca1 Hever Levy MD MD 7 Corrections: (The following items were deleted from the chart) 01:25 01:06 08/18/2020 01:06 Discharged to Home. Impression: Neck Pain. Condition is Stable. rr5 Forms are Medication Reconciliation Form, Thank You Letter, Antibiotic Education, Prescription Opioid Use. Follow up: Private Physician; When: 1 - 2 days; Reason: Worsening of condition, Recheck today's complaints, Continuance of care, Re-evaluation by your physician. Problem is an ongoing problem. Symptoms have improved. 7
--- NOTE | 2020-08-18 01:07 | ER ---
Nurse's Notes [facility] Name: Teresa Freire Age: 40 yrs Sex: Female : 1980 Arrival Date: 08/17/2020 Time: 21:40 Bed 4 Private MD: Diagnosis: Neck Pain Presentation: 08/17 22:12 Chief complaint: Patient states: have this weird feeling on my L jaw and L front neck x ca1 1 week, getting worse. Feels like pressure, feels it in my tongue. And I feel lightheaded when I get up and move too much. And I feel real funny, I can't explain it. Coronavirus screen: Client denies travel out of the [place] in the last 14 days. At this time, the client does not indicate any symptoms associated with coronavirus-19. Ebola Screen: Patient negative for fever greater than or equal to 101.5 degrees Fahrenheit, and additional compatible Ebola Virus Disease symptoms Patient denies exposure to infectious person. Patient denies travel to an Ebola-affected area in the 21 days before illness onset. No symptoms or risks identified at this time. Initial Sepsis Screen: Does the patient meet any 2 criteria? No. Patient's initial sepsis screen is negative. Does the patient have a suspected source of infection? No. Patient's initial sepsis screen is negative. Risk Assessment: Do you want to hurt yourself or someone else? Patient reports no desire to harm self or others. Onset of symptoms was August 17, 2020. 22:12 Method Of Arrival: Ambulatory ca1 22:12 Acuity: AMRIT 3 ca1 SEWER HAND: 22:15 LMP N/A - control method ca1 Historical: - Allergies: 22:15 NKA; ca1 - Home Meds: 22:15 None [Active]; ca1 - PMHx: 22:15 None; ca1 - PSHx: 22:15 Cholecystectomy; Tonsillectomy; Tubal ligation; ca1 - Immunization history:: Flu vaccine is not up to date. - Social history:: Smoking status: Patient reports the use of cigarette tobacco products, smokes one pack cigarettes per day. Screenin/25 00:08 Abuse screen: Denies threats or abuse. Denies injuries from another. Nutritional rr5 screening: No deficits noted. Tuberculosis screening: No symptoms or risk factors identified. Fall Risk None identified. Total Heller Fall Scale indicates No Risk (0-24 pts). Assessment: 00:15 General: Appears in no apparent distress. comfortable, Behavior is calm, cooperative, rr5 appropriate for age. Pain: Denies pain. Neuro: Level of Consciousness is awake, alert, obeys commands, Oriented to person, place, time, situation. Cardiovascular: Capillary refill < 3 seconds Patient's skin is warm and dry. Respiratory: Airway is patent Respiratory effort is even, unlabored, Respiratory pattern is regular, symmetrical. GI: No signs and/or symptoms were reported involving the gastrointestinal system. : No signs and/or symptoms were reported regarding the genitourinary system. EENT: Reports pressure on left jaw. Derm: Skin is intact, is healthy with good turgor, Skin temperature is warm. Musculoskeletal: Capillary refill < 3 seconds. 01:15 Reassessment: Patient appears in no apparent distress at this time. Patient is alert, rr5 oriented x 3, equal unlabored respirations, skin warm/dry/pink. discharge instruction given and explained without complaints made. Vital Signs: 08/17 22:12 BP 149 / 78; Pulse 92; Resp 16 S; Temp 97.7(TE); Pulse Ox 100% on R/A; Weight 83.91 kg ca1 (R); Height 5 ft. 4 in. (162.56 cm) (R); Pain 0/10; 08/18 00:42 BP 122 / 66; Pulse 85; Resp 17; Pulse Ox 98% ; rr5 01:10 BP 119 / 65; Pulse 80; Resp 17; Pulse Ox 98% ; rr5 08/17 22:12 Body Mass Index 31.75 (83.91 kg, 162.56 cm) ca1 ED Course: 08/17 21:40 Patient arrived in ED. bp1 22:14 Triage completed. ca1 22:15 Arm band placed on right wrist. ca1 08/18 00:00 Patient has correct armband on for positive identification. Bed in low position. Call rr5 light in reach. Pulse ox on. NIBP on. 00:07 Wilber Centeno RN is Primary Nurse. rr5 00:09 Hever Levy MD is Attending Physician. 7 00:42 No provider procedures requiring assistance completed. EKG done, by ED staff, reviewed rr5 by Hever Levy MD. 01:25 Patient did not have IV access during this emergency room visit. rr5 Administered Medications: No medications were administered Outcome: 01:06 Discharge ordered by . [email or web address] 01:20 Discharged to home ambulatory. rr5 01:20 Condition: stable rr5 01:20 Discharge instructions given to patient, Instructed on discharge instructions, follow up and referral plans. Demonstrated understanding of instructions, follow-up care. 01:25 Patient left the ED. rr5 Signatures: Wilber Centeno RN RN rr5 Liliya Domingo RN RN ca1 Paniauga, Brittany bp1 Holmes, Maurice, MD MD 7
[2020-08-18 01:51] VITALS: BP 122/66; O2SAT 98
[2020-08-18 01:52] VITALS: TEMP 97.7
== END 2020-08-18 01:25 | disposition home or self-care (01) ==
LOC: ER 21:37
DX: M54.2 Cervicalgia (principal); F17.210 Nicotine dependence, cigarettes, uncomplicated
CPT/HCPCS: 93005; 99283

== ENCOUNTER 2020-11-19 17:10 | Emergency (ER) | payer BC ==
--- OUTSIDE RECORDS SUMMARY | 2020-11-19 17:12 | XMS REPORT | Continuity of Care Document ---
:1980 Author Organization [facility] t Address [address] [place] [address] Care Team Providers Name Role Phone Emmie RASCON Attending Clinician Problems This patient has no known problems. Allergies, Adverse Reactions, Alerts This patient has no known allergies or adverse reactions. Medications Ordered Filled Start Stop Current Ordering Indication Dosage Frequency Signature Comments Components Source Medication Medication Date Date Medication? Clinician (SIG) Name Name Amoxicillin Amoxicillin 2020-0 2020- No Jonah [address] [facility] [...] Date/Time Type Type Clinicians Facility Department ID 2020-10-08 2020-10-08 [facility] [id number] 2020-09-24 2020-09-24 [facility] [id number] [facility] 2020-08-19 2020-08-19 [facility] [id number] [facility] 2020-08-14 2020-08-14 [facility] [id number] [facility] 2020-08-12 2020-08-12 [facility] [id number] [facility] 2020-08-12 2020-08-12 [facility] [id number] [facility] 2020-08-12 2020-08-12 [facility] [id number] [facility] 2020-05-26 2020-05-26 [facility] [id number] [facility] 2020-04-28 2020-04-28 [facility] [id number] [facility] 2020-04-10 2020-04-10 [facility] [id number] [facility] 15[facility]50[facility]00 15:50:00 [employer] [place] [facility] 2020-04-10 2020-04-10 [facility] [id number] [facility] 08:25:00 08:25:00 [facility] [employer] [facility] 2019-10-10 2019-10-10 Office RUSS [place] [id number] 09:49:48 10:25:53 Visit Shanel Solares [id number] [place] [id number] [facility] [id number] [address] 2019-09-25 2019-09-25 [facility] [id number] [facility] 16:00:00 16:00:00 [facility] [employer] [facility] 2019-08-27 2019-08-27 [facility] [id number] 16:00:00 16:00:00 t [employer] [facility] 2019-07-16 2019-07-16 [facility] [id number] [address] 15:00:00 15:00:00 t [employer] [facility] 2019-04-04 2019-04-04 [facility] [id number] 15[facility]46:00 15:46:00 [facility] ent Clinics 2019-03-23 2019-03-23 [facility] [id number] 09:01:00 09:01:00 [facility] ent Clinics 2018-11-27 2018-11-27 [facility] [id number] [address] 16:30:00 16:30:00 t [place] [employer] [facility] Clin[facility] 2018-11-15 2018-11-15 [facility] [id number] 14:30:00 14:30:00 [facility] - Care [facility] Outpat[facility] ent Clinics 2018-10-30 2018-10-30 [facility] [id number] 10:58:00 10:58:00 [facility] 2018-10-26 2018-10-26 [facility] [id number] 13:30:00 13:30:00 [facility] - Care [facility] 2018-10-24 2018-10-24 [facility] [id number] 10:55:00 10:55:00 [facility] - Care [facility] 2018-10-10 2018-10-10 [facility] [id number] 09:24:00 09:24:00 [facility] - Care [facility] 2018-10-02 2018-10-02 [facility] [id number] 15:45:00 15:45:00 [facility] - Care [facility] 2018-08-10 2018-08-10 [facility] [id number] [facility] 15:02:00 15:02:00 t [employer] [facility] Results This patient has no known results.
--- NOTE | 2020-11-19 19:48 | RAD REPORT ---
EXAM DESCRIPTION: RAD - Chest Single View - 11/19/2020 7:38 pm CLINICAL HISTORY: CHEST PAIN Chest pain. COMPARISON: Chest Single View dated 07/03/2018 FINDINGS: Portable technique limits examination quality. The lungs are grossly clear. The heart is normal in size. No displaced fractures. IMPRESSION: No acute intrathoracic process suspected.
[2020-11-19 19:50] LABS: Absolute Lymphocytes (CBC) 2.2 K/uL (0.7-4.9); Basophils % 0.5 % (0-1.3); Hematocrit 39.3 % (36.0-45.0); Lymphocytes % 29.5 % (15.3-44.8); RBC Red Blood Cell Count 4.31 M/uL (3.86-4.86)
[2020-11-19 19:56] LABS: Protime INR 0.96
[2020-11-19 20:12] LABS: ALT/SGPT 34 U/L (12-78); AST/SGOT 13 U/L (15-37); Albumin 3.7 g/dL (3.4-5.0); Alkaline Phosphatase 65 U/L (45-117); BUN Blood Urea Nitrogen 8 mg/dL (7-18); Bicarbonate 29 mmol/L (21-32); Bilirubin Direct < 0.1 mg/dL (0-0.2); Bilirubin Total 0.2 mg/dL (0.2-1.0); Glucose Level 99 mg/dL (74-106); Magnesium 2.4 mg/dL (1.8-2.4); NT PRO-BNP 15 pg/mL (<125); Potassium 4.1 mmol/L (3.5-5.1); Protein, Total 6.3 g/dL (6.4-8.2); Sodium Level 143 mmol/L (136-145); Troponin (Emerg Dept Use Only) < 0.02 ng/mL (0.0-0.045)
--- NOTE | 2020-11-19 20:42 | ER ---
Nurse's Notes [facility] Name: Teresa Freire Age: 40 yrs Sex: Female : 1980 Arrival Date: 11/19/2020 Time: 17:14 Bed 27 Private MD: Jonah Betancourt Diagnosis: Chest pain, unspecified Presentation: 11/19 17:26 Chief complaint: Patient states: CP that started 3 days ago with sweats, reports em nausea, denies cough, fever. Coronavirus screen: Client denies travel out of the [place] in the last 14 days. Ebola Screen: Patient negative for fever greater than or equal to 101.5 degrees Fahrenheit, and additional compatible Ebola Virus Disease symptoms Patient denies exposure to infectious person. Patient denies travel to an Ebola-affected area in the 21 days before illness onset. No symptoms or risks identified at this time. Initial Sepsis Screen: Does the patient meet any 2 criteria? No. Patient's initial sepsis screen is negative. Does the patient have a suspected source of infection? No. Patient's initial sepsis screen is negative. Risk Assessment: Do you want to hurt yourself or someone else? Patient reports no desire to harm self or others. Onset of symptoms was November 19, 2020. 17:26 Method Of Arrival: Ambulatory em 17:26 Acuity: AMRIT 3 em Triage Assessment: 19:53 General: Appears in no apparent distress. Behavior is calm, cooperative, appropriate kg for age, quiet. Pain: Complains of pain in chest Pain radiates to back and left arm Pain currently is 3 out of 10 on a pain scale. at worst was 7 out of 10 on a pain scale. level that patient reports is acceptable is 3 out of 10 on a pain scale. Quality of pain is described as burning, aching, sharp, Pain began 2-3 days ago. Is intermittent. EENT: No deficits noted. Neuro: No deficits noted. Cardiovascular: Reports chest pain, nausea, Heart tones S1 S2 Capillary refill < 3 seconds Pulses are 3+ in right radial artery, right dorsalis pedis artery, left radial artery and left dorsalis pedis artery. Respiratory: No deficits noted. GI: No deficits noted. : No deficits noted. Derm: No deficits noted. Musculoskeletal: No deficits noted. 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 - Social history:: Smoking status: Patient reports the use of cigarette tobacco products, smokes one pack cigarettes per day. Screenin:53 Abuse screen: Denies threats or abuse. Nutritional screening: No deficits noted. kg Tuberculosis screening: No symptoms or risk factors identified. Fall Risk IV access (20 points). Assessment: 17:49 Also complains of nausea. Tenecteplase (TNKase) screening:. Pain: Complains of pain in kg chest Pain radiates to back and left arm Pain currently is 3 out of 10 on a pain scale. at worst was 7 out of 10 on a pain scale. level that patient reports is acceptable is 3 out of 10 on a pain scale. Pain began 2-3 days ago. Cardiovascular: Reports chest pain, nausea, Heart tones S1 S2 Capillary refill < 3 seconds Pulses are 3+ in right radial artery, right dorsalis pedis artery, left radial artery and left dorsalis pedis artery Rhythm is regular Chest pain is described as mild, quality is burning, sharp, is located in left chest wall radiates to left arm(s) back began 3 days ago. Respiratory: No deficits noted. GI: No deficits noted. GI: No deficits noted. Reports nausea. : No deficits noted. EENT: No deficits noted. Derm: No deficits noted. Vital Signs: 17:26 BP 140 / 78; Pulse 86; Resp 20; Temp 97.9(O); Pulse Ox 99% on R/A; Weight 86.18 kg; em Height 5 ft. 4 in. (162.56 cm); Pain 0/10; 18:30 BP 113 / 56; Pulse 74; Resp 18; Pulse Ox 97% on R/A; kg 19:30 BP 102 / 50; Pulse 69; Resp 18; Pulse Ox 98% ; kg 20:55 BP 121 / 74; Pulse 64; Resp 18; Pulse Ox 98% on R/A; kg 17:26 Body Mass Index 32.61 (86.18 kg, 162.56 cm) em ED Course: 17:14 Patient arrived in ED. mr 17:14 Jonah Betancourt DO is Private Physician. mr 17:28 Triage completed. em 17:29 Arm band placed on. em 17:29 Patient has correct armband on for positive identification. Placed in gown. Bed in low kg position. Call light in reach. Side rails up X 1. shelter monitor on. Pulse ox on. NIBP on. 17:43 Nelly Peralta is Primary Nurse. kg 18:12 Koffi Ulloa PA is PHCP. jr8 18:12 Neel Mckeon MD is Attending Physician. jr8 19:38 XRAY Chest (1 view) In Process Unspecified. EDMS 19:50 Basic Metabolic Panel Sent. kg 19:50 CBC with Automated Diff Sent. kg 19:50 CBC with Diff Sent. kg 19:50 LFT's Sent. kg 19:50 Magnesium Sent. kg 19:51 Inserted saline lock: 20 gauge in left antecubital area, using aseptic technique. kg Missed attempt(s): 20 gauge in right antecubital area. Patient maintains SpO2 saturation greater than 95% on room air. 20:40 Prashanth Davenport MD is Referral Physician. jr8 20:56 No provider procedures requiring assistance completed. IV discontinued, intact, kg bleeding controlled, No redness/swelling at site. Pressure dressing applied. Administered Medications: No medications were administered Outcome: 20:41 Discharge ordered by . jr8 20:57 Discharged to home ambulatory. kg 20:57 Condition: good 20:57 Discharge instructions given to patient, Instructed on discharge instructions, follow up and referral plans. Demonstrated understanding of instructions, follow-up care. 20:58 Patient left the ED. kg Signatures: Dispatcher [employer] Genoveva Carrington Edgar, RN RN em Koffi Ulloa PA PA jr8 Nelly Peralta kg
--- NOTE | 2020-11-19 20:42 | EDPHYS ---
Physician Documentation [facility] Name: Teresa Freire Age: 40 yrs Sex: Female : 1980 Arrival Date: 11/19/2020 Time: 17:14 Bed 27 Private MD: Serafin [facility] ED Physician Neel Mckeon HPI: 11/19 19:55 This 40 yrs old Female presents to ER via Ambulatory with complaints of Chest jr8 Pain, Shoulder Pain. 19:55 The patient or guardian reports chest pain that is located primarily in the anterior jr8 chest wall, left. The pain radiates to the left shoulder. Associated signs and symptoms: The patient has no apparent associated signs or symptoms. The chest pain is described as sharp. Duration: The patient or guardian reports multiple episodes, that are intermittent, the episodes last approximately 15 minute(s). Modifying factors: The symptoms are alleviated by nothing. the symptoms are aggravated by nothing. Severity of pain: At its worst the pain was moderate in the emergency department the pain has improved. The patient has not experienced similar symptoms in the past. The patient has not recently seen a physician. 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 - Social history:: Smoking status: Patient reports the use of cigarette tobacco products, smokes one pack cigarettes per day. ROS: 19:55 Eyes: Negative for injury, pain, redness, and discharge, ENT: Negative for injury, jr8 pain, and discharge, Neck: Negative for injury, pain, and swelling, Respiratory: Negative for shortness of breath, cough, wheezing, and pleuritic chest pain, Abdomen/GI: Negative for abdominal pain, nausea, vomiting, diarrhea, and constipation, Back: Negative for injury and pain, MS/Extremity: Negative for injury and deformity, Skin: Negative for injury, rash, and discoloration, Neuro: Negative for headache, weakness, numbness, tingling, and seizure. 19:55 Cardiovascular: Positive for chest pain, Negative for edema, orthopnea, palpitations, paroxysmal nocturnal dyspnea. Exam: 19:55 Eyes: Pupils equal round and reactive to light, extra-ocular motions intact. Lids and jr8 lashes normal. Conjunctiva and sclera are non-icteric and not injected. Cornea within normal limits. Periorbital areas with no swelling, redness, or edema. ENT: Nares patent. No nasal discharge, no septal abnormalities noted. Tympanic membranes are normal and external auditory canals are clear. Oropharynx with no redness, swelling, or masses, exudates, or evidence of obstruction, uvula midline. Mucous membranes moist. Neck: Trachea midline, no thyromegaly or masses palpated, and no cervical lymphadenopathy. Supple, full range of motion without nuchal rigidity, or vertebral point tenderness. No Meningismus. Chest/axilla: Normal chest wall appearance and motion. Nontender with no deformity. No lesions are appreciated. Cardiovascular: Regular rate and rhythm with a normal S1 and S2. No gallops, murmurs, or rubs. Normal PMI, no JVD. No pulse deficits. Respiratory: Lungs have equal breath sounds bilaterally, clear to auscultation and percussion. No rales, rhonchi or wheezes noted. No increased work of breathing, no retractions or nasal flaring. Abdomen/GI: Soft, non-tender, with normal bowel sounds. No distension or tympany. No guarding or rebound. No evidence of tenderness throughout. Back: No spinal tenderness. No costovertebral tenderness. Full range of motion. Skin: Warm, dry with normal turgor. Normal color with no rashes, no lesions, and no evidence of cellulitis. MS/ Extremity: Pulses equal, no cyanosis. Neurovascular intact. Full, normal range of motion. Neuro: Awake and alert, GCS 15, oriented to person, place, time, and situation. Cranial nerves II-XII grossly intact. Motor strength 5/5 in all extremities. Sensory grossly intact. Cerebellar exam normal. Normal gait. Vital Signs: 17:26 BP 140 / 78; Pulse 86; Resp 20; Temp 97.9(O); Pulse Ox 99% on R/A; Weight 86.18 kg; em Height 5 ft. 4 in. (162.56 cm); Pain 0/10; 18:30 BP 113 / 56; Pulse 74; Resp 18; Pulse Ox 97% on R/A; kg 19:30 BP 102 / 50; Pulse 69; Resp 18; Pulse Ox 98% ; kg 20:55 BP 121 / 74; Pulse 64; Resp 18; Pulse Ox 98% on R/A; kg 17:26 Body Mass Index 32.61 (86.18 kg, 162.56 cm) em MDM: 18:44 Patient medically screened. [facility] 20:39 DIMITRI Risk Score: 1 - Recent [<24hrs] Severe Angina, TOTAL SCORE = 1. Data reviewed: [facility] vital signs, nurses notes, lab test result(s), EKG, radiologic studies, plain films. Data interpreted: Pulse oximetry: on room air is 98 %. Interpretation: normal. 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 ED course: Patient currently without chest pain. VS stable. No acute findings on labs, ECG, or imaging. Will d/c home to f/u with cardiology. Knows to come back if worse. . 11/19 19:19 Order name: Basic Metabolic Panel [facility] 11/19 19:19 Order name: CBC with Diff [facility] 11/19 19:19 Order name: LFT's; Complete Time: 20:31 [facility] 11/19 19:19 Order name: Magnesium; Complete Time: 20:31 [facility] 11/19 19:19 Order name: NT PRO-BNP; Complete Time: 20: [facility] 11/19 19:19 Order name: PT-INR; Complete Time: 20:01 11/19 17:58 Order name: EKG; Complete Time: 17:59 11/19 17:58 Order name: EKG - Nurse/Tech; Complete Time: 19:10 11/19 19:19 Order name: Troponin (emerg Dept Use Only); Complete Time: 20:31 [facility] 11/19 19:19 Order name: XRAY Chest (1 view); Complete Time: 19:56 [facility] 11/19 19:19 Order name: Cardiac monitoring; Complete Time: 19:50 11/19 19:19 Order name: IV Saline Lock; Complete Time: 19:50 8 11/19 19:19 Order name: Basic Metabolic Panel; Complete Time: 20:31 [facility] 11/19 19:19 Order name: CBC with Automated Diff; Complete Time: 19:56 [facility] 11/19 19:19 Order name: Labs collected and sent; Complete Time: 19:50 jr8 11/19 19:19 Order name: O2 Per Protocol; Complete Time: 19:50 jr8 11/19 19:19 Order name: O2 Sat Monitoring; Complete Time: 19:50 jr8 Administered Medications: No medications were administered Disposition: 23:50 Co-signature as Attending Physician, Neel Mckeon MD. pkl Disposition: 11/19/20 20:41 Discharged to Home. Impression: Chest pain, unspecified. - Condition is Stable. - Discharge Instructions: Nonspecific Chest Pain. - Medication Reconciliation Form, Thank You Letter, Antibiotic Education, Prescription Opioid Use form. - Follow up: Prashanth Davenport MD; When: 1 - 2 days; Reason: Recheck today's complaints, Continuance of care, Re-evaluation by your physician. - Problem is new. - Symptoms have improved. Signatures: Dispatcher [employer] [facility] Neel Mckeon MD MD pkl Milton Araya RN RN Shantel Amador RN RN ss Roszak, Josh, PA PA jr8 Fabian Nelly kg Corrections: (The following items were deleted from the chart) 20:58 20:41 11/19/2020 20:41 Discharged to Home. Impression: Chest pain, unspecified. kg Condition is Stable. Forms are Medication Reconciliation Form, Thank You Letter, Antibiotic Education, Prescription Opioid Use. Follow up: Prashanth Davenport; When: 1 - 2 days; Reason: Recheck today's complaints, Continuance of care, Re-evaluation by your physician. Problem is new. Symptoms have improved. jr8
[2020-11-19 21:13] VITALS: TEMP 97.9
[2020-11-19 21:16] VITALS: O2SAT 98
[2020-11-19 21:18] VITALS: BP 121/74
== END 2020-11-19 20:58 | disposition home or self-care (01) ==
LOC: ER 17:10
DX: R07.9 Chest pain, unspecified (principal); F17.210 Nicotine dependence, cigarettes, uncomplicated
CPT/HCPCS: 36415; 71045; 80048; 80076; 83735; 83880; 84484; 85025; 85610; 93005; 99285